=== PATIENT | female | born 1975 | race Hispanic/Latino ===

== ENCOUNTER 2017-12-27 09:19 | Emergency (ER) | payer OTHER ==
[2017-12-27 09:22] VITALS: BMI 31.3
[2017-12-27 09:25] VITALS: O2SAT 98
--- NOTE | 2017-12-27 09:53 | ED PDOC ---
HPI: Abdomen Time Seen by Provider: 12/27/17 09:37 Chief Complaint (Nursing): Abdominal Pain History Per: Patient Onset/Duration Of Symptoms: Other (3 weeks) Current Symptoms Are (Timing): Still Present Severity: Moderate Location Of Pain/Discomfort: RUQ, Epigastric Quality Of Discomfort: Unable To Describe Associated Symptoms: Nausea. denies: Fever, Chills, Vomiting, Diarrhea, Urinary Symptoms Exacerbating Factors: None Alleviating Factors: None Additional Complaint(s): Epigastric and RUQ abd pain assoc with nausea x 3 weeks. Worse this AM. Denies NVD. Denies fever chills. Denies urinary sxs. Noted dark stool this AM but denies melena or diarrhea. Pain radiated to back. Past Medical History Vital Signs: Last Vital Signs Temp 98.3 F 12/27/17 09:23 Pulse 91 H 12/27/17 09:23 Resp 17 12/27/17 09:23 BP 137/91 H 12/27/17 09:23 Pulse Ox 98 12/27/17 09:55 - Medical History PMH: No Chronic Diseases - Family History Family History: States: Other - Home Medications Home Medications: Ambulatory Orders Medication Instructions Recorded Pantoprazole Sodium [Protonix] 40 mg PO DAILY #30 tablet. 12/27/17 - Allergies Allergies/Adverse Reactions: Allergies Allergy/AdvReac Type Severity Reaction Status Date / Time No Known Allergies Allergy Verified 12/27/17 09:30 Review of Systems ROS Statement: Except As Marked, All Systems Reviewed And Found Negative Constitutional: Negative for: Fever Respiratory: Positive for: Shortness of Breath Gastrointestinal: Positive for: Nausea, Abdominal Pain Genitourinary Female: Negative for: Dysuria, Frequency Musculoskeletal: Positive for: Back Pain Physical Exam - Reviewed Nursing Documentation Reviewed: Yes Vital Signs Reviewed: Yes - Physical Exam Appears: Positive for: Non-toxic, No Acute Distress Head Exam: Positive for: ATRAUMATIC, NORMAL INSPECTION, NORMOCEPHALIC Skin: Positive for: Normal Color, Warm, DRY Eye Exam: Positive for: EOMI, Normal appearance, PERRL ENT: Positive for: Normal ENT Inspection Neck: Positive for: Normal, Painless ROM Cardiovascular/Chest: Positive for: Regular Rate, Rhythm Respiratory: Positive for: CNT, Normal Breath Sounds Gastrointestinal/Abdominal: Positive for: Soft, Tenderness (Epigastric and RUQ) . Negative for: Mass, Guarding, Rebound Back: Positive for: Normal Inspection Extremity: Positive for: Normal ROM Neurologic/Psych: Positive for: Alert, Oriented - Laboratory Results Result Diagrams: 12/27/17 10:00 12/27/17 10:00 - ECG O2 Sat by Pulse Oximetry: 98 Disposition - Clinical Impression Clinical Impression: Gastritis - Patient ED Disposition Is Patient to be Admitted: No Counseled Patient/Family Regarding: Studies Performed, Diagnosis, Need For Followup, Rx Given - Disposition Referrals: Mehran Vieyra MD, PhD [Staff Provider] - Disposition: Routine/Home Disposition Time: 14:19 Condition: FAIR Prescriptions: Pantoprazole Sodium [Protonix] 40 mg PO DAILY #30 tablet.dr Instructions: Gastritis Forms: [facility] ([place]i)
[2017-12-27 10:22] LABS: BASO # 0.1 K/uL (0.0-0.2); BASO % 0.7 % (0.0-2.0); EOS # 0.1 K/uL (0.0-0.7); EOS % 1.5 % (0.0-4.0); HEMOGLOBIN 13.7 g/dL (12.0-16.0); LYMPH # 2.5 K/uL (1.0-4.3); LYMPH % 30.4 % (20.0-40.0); MEAN CELL VOLUME 93.7 fl (81.0-99.0); MEAN CORPUSCULAR HGB CONC 34.2 g/dL (33.0-37.0); MEAN PLATELET VOLUME 8.8 fl (7.2-11.7); MONO # 0.4 K/uL (0.0-0.8); MONO % 4.5 % (0.0-10.0); NEUT # 5.2 K/uL (1.8-7.0); NEUT % 62.9 % (50.0-75.0); NRBC % 0.1 % (0.0-0.0); RBC 4.28 Mil/uL (3.80-5.20); WHITE BLOOD COUNT 8.3 K/uL (4.8-10.8)
[2017-12-27 10:36] LABS: ALB/GLOB RATIO 1.2 (1.0-2.1); ALBUMIN 4.3 g/dL (3.5-5.0); CALCIUM 8.8 mg/dL (8.4-10.2); GFR AFRICAN-AMERICAN > 60; GFR NON-AFRICAN AMERICAN > 60; LIPASE 71 U/L (23-300)
[2017-12-27 10:38] LABS: ALT/SGPT 14 U/L (9-52); AST/SGOT 26 U/L (14-36); BLOOD UREA NITROGEN 9 mg/dl (7-17)
--- NOTE | 2017-12-27 11:42 | US ---
Date of service: 12/27/2017 HISTORY: RUQ pain COMPARISON: None. TECHNIQUE: Sonographic evaluation of the right upper quadrant of the abdomen. FINDINGS: LIVER: Measures 15.9 cm in length. Smooth contour and normal echogenicity of the liver parenchyma. No mass. No intrahepatic bile duct dilatation. GALLBLADDER: Unremarkable. No gallstones. No pericholecystic fluid collections or sonographic Palumbo sign seen COMMON BILE DUCT: Measures 3.2 mm. No stones. No dilatation. PANCREAS: Unremarkable as visualized. No mass. No ductal dilatation. RIGHT KIDNEY: Measures 10.7 x 5.5 x 5.5 cm in length. Normal echogenicity. No calculus, mass, or hydronephrosis. AORTA: No aneurysmal dilatation. IVC: Unremarkable. OTHER FINDINGS: None . IMPRESSION: No evidence of acute right upper quadrant pathology. Specifically. No evidence of cholelithiasis. No sonographic Palumbo sign. The in
--- NOTE | 2017-12-27 11:53 | RAD ---
Date of service: 12/27/2017 HISTORY: SOB COMPARISON: No prior. TECHNIQUE: Chest PA and lateral FINDINGS: LUNGS: No active pulmonary disease. PLEURA: No significant pleural effusion identified. No pneumothorax apparent. CARDIOVASCULAR: Normal. OSSEOUS STRUCTURES: No significant abnormalities. VISUALIZED UPPER ABDOMEN: Normal. OTHER FINDINGS: None. IMPRESSION: No active disease.
[2017-12-27] MEDS ORDERED: Sodium Chloride 0.9% 50 ML IV ONE (12:12)
[2017-12-27] MEDS ORDERED: Iohexol 300 100 ML IJ ONE (12:12)
--- NOTE | 2017-12-27 14:08 | CT ---
Date of service: 12/27/2017 PROCEDURE: CT Abdomen and Pelvis with contrast HISTORY: Abd pain COMPARISON: None. TECHNIQUE: Contrast dose: 98 mL Omnipaque 3 on Radiation dose: Total exam DLP = 1008 mGy-cm. This CT exam was performed using one or more of the following dose reduction techniques: Automated exposure control, adjustment of the mA and/or kV according to patient size, and/or use of iterative reconstruction technique. FINDINGS: LOWER THORAX: 3 mm left lateral lung base and 2 mm nonspecific lateral right lung base pleural-based nodularity -probably postinflammatory. LIVER: Unremarkable. No gross lesion or ductal dilatation. GALLBLADDER AND BILE DUCTS: Unremarkable. PANCREAS: Unremarkable. No gross lesion or ductal dilatation. SPLEEN: Unremarkable. ADRENALS: Unremarkable. No mass. KIDNEYS AND URETERS: Unremarkable. No hydronephrosis. No solid mass. VASCULATURE: Unremarkable. No aortic aneurysm. BOWEL: Mild redundancy. Mild colonic stool retention. . No obstruction. No gross mural thickening. Possible few transverse colon and right and left flexure tiny diverticulosis. No complicating diverticulitis APPENDIX: Normal appendix. PERITONEUM: Unremarkable. No free fluid. No free air. LYMPH NODES: Unremarkable. No enlarged lymph nodes. BLADDER: Unremarkable. REPRODUCTIVE: Uterus tip towards the right BONES: No acute fracture. OTHER FINDINGS: None. IMPRESSION: No bowel obstruction or mural thickening. Mild colonic stool retention and mild colonic redundancy. No diverticulitis. No appendicitis. No urolithiasis appreciated. Uterus tip towards the right. Otherwise unremarkable exam.
[2017-12-27 14:36] VITALS: BP 120/70; PULSE 74; RESP 20; TEMP 98.4
--- NOTE | 2017-12-28 16:38 | CARD ---
APPROVED REPORT Date of service: 12/27/2017 EKG Measurement Heart [id number] ID [id number] <Conclusion> Normal sinus rhythm Normal ECG
== END 2017-12-27 14:36 | disposition home or self-care (01) ==
LOC: H.ER 09:19
DX: K29.70 Gastritis, unspecified, without bleeding (principal)
CPT/HCPCS: 71046; 74177; 76705; 80053; 81025; 83690; 85025; 93005; 96374; 99284; Q9967